=== PATIENT | female | born 1990 | race American Indian/Alaskan Native ===

== ENCOUNTER 2024-11-20 11:02 | Emergency (ER) | payer MEDICAID, SELFPAY ==
[2024-11-20 11:03] VITALS: BMI 31.3
[2024-11-20 11:51] VITALS: BP 124/81; PULSE 85; RESP 18; TEMP 36.6; O2SAT 100
--- NOTE | 2024-11-20 12:14 | XR_ITS ---
EXAMINATION: Ankle, right 3 views . Technique: Ankle AP, oblique, lateral 3 views Date and time of exam: November 20, 2024 1233 hrs. Indications: Twisting injury to the ankle 2 days ago with ankle pain. Findings: Lateral malleolar soft tissue swelling No acute fracture No ankle dislocation Impression: No acute fracture
--- NOTE | 2024-11-20 12:15 | EDNOTE_ITS ---
<Statement entered by Isabella Liu MD - 12/01/24 19:23> As co-signing physician, I was present and available for consult prn. I concur with the plan and care as documented by the midlevel provider. Lower Extremity Injury RME/HPI General Chief Complaint: Ankle/Foot Injury Stated Complaint: INJURY TO RIGHT ANKLE LAST NIGHT Time Seen by Provider: 11/20/24 12:00 Arrival date/time: 11/20/24 11:02 This is a 34-year-old female that comes in with complaints of right ankle pain after falling last night. Patient states that she thinks she twisted it wrong. Patient has some mild edema to lateral ankle on the right side. Patient denies any other injuries. Related Data Previous Rx's ?Medication ?Instructions ?Recorded hydrocodone 5 mg-acetaminophen 325 1 tab PO Q4HR PRN p ain PRN #20 tabs 12/18/20 mg tablet ibuprofen 600 mg tablet 600 mg PO Q6HR PRN Pain Or F ever > 12/18/20 101 #60 tabs acetaminophen 300 mg-codeine 15 mg 1 tab PO Q12H PRN p ain #14 tabs 07/28/24 tablet ibuprofen 800 mg tablet 800 mg PO Q8H PRN pain #30 t abs 07/28/24 ibuprofen 800 mg tablet 800 mg PO Q6H PRN pain #14 t abs 11/20/24 Allergies Allergy/AdvReac Type Severity Reaction Status Date / Time No Known Allergies Allergy Verified 11/20/24 11:04 Review of Systems Review of Systems Systems Reviewed: All systems reviewed, normal except as documented Past Medical History Surgical History SURGICAL: Positive Section ED Exam General General appearance: Present alert and in no apparent distress Head Head exam: Present atraumatic Eye Eye exam: Present normal appearance, PERRL and EOMI ENT ENT exam: Present normal exam, normal oropharynx and mucous membranes moist Neck Neck exam: Present normal inspection, full ROM and trachea midline Chest Chest inspection: Present normal inspection and symmetric chest wall rise Respiratory Respiratory exam: Present normal lung sounds bilaterally Cardiovascular Cardiovascular exam: Present regular rate, normal rhythm and normal heart sounds Abdominal Exam Abdominal exam: Present soft Extremities Exam Extremities exam: Present other (right ankle, some pain with rom but is able to have full rom, mild edema ) Back Exam Back exam: Present normal inspection and full ROM Neurological Exam Neurological exam: Present alert, oriented X3 and CN II-XII intact Psychiatric Psychiatric exam: Present normal affect and normal mood Skin Skin exam: Present warm, dry, intact and normal color Course Quality Measures none Orders Category Date Time Status XR ankle comp RT min 3V Stat Exams 11/20/24 12:14 Completed Acetaminophen Tab [Tylenol ES Tab] Med 11/20/24 12:14 Discontinued 1,000 mg PO X1 ONE Ibuprofen Tab [Motrin Tab] Med 11/20/24 12:14 Discontinued 800 mg PO X1 ONE Vital Signs Vital signs: Vital Signs Temperature 97.9 F 11/20/24 11:51 Pulse Rate 85 11/20/24 11:51 Respiratory Rate 18 11/20/24 11:51 Blood Pressure 124/81 11/20/24 11:51 Pulse Oximetry (%) 100 11/20/24 11:51 Oxygen Delivery Method Room Air 11/20/24 11:51 Extremity Injury, Lower MDM Narrative MDM Narrative:: ankle x ray: Findings: Lateral malleolar soft tissue swelling No acute fracture No ankle dislocation Impression: No acute fracture Today patient had xray of right ankle. there was no acute fracture seen. Exam had some mild edema. I explained to patient at length that if there was continued pain to this area or worsened to come back to ED or see primary provider for more xrays or further testing such as CT scan or MRI. X rays are not perfect and sometimes serial films needed. Patient verbalized understanding. Patient states they will follow up with primary provider in 1-2 days or come back to ED if symptoms change or worsen. Patient data External records reviewed:: [facility] previous records Clinical information provided by:: patient Social determinants that could affect healthcare access:: none Patient has the following chronic illnesses:: none How is presenting disease/condition affected by chronic disease/condition?: no chronic disease Evaluation data The following diagnostics were reviewed and interpreted by me:: radiology exam(s) Lab and/or radiology exams considered but not ordered:: none Interpretation Summary: see note Medications / Prescriptions Medications or Prescriptions considered but not ordered:: none Medication administrations:: Medication Administration History Discontinued Medications Acetaminophen (Acetaminophen 500 Mg Tablet) 1,000 mg PO X1 ONE Stop: 11/20/24 12:15 Last Admin: 11/20/24 12:54 Dose: 1,000 mg Documented By: [facility] Ibuprofen (Ibuprofen Tab 400 Mg Tablet) 800 mg PO X1 ONE Stop: 11/20/24 12:15 Last Admin: 11/20/24 12:54 Dose: 800 mg Documented By: [facility] see [facility] Consultations Consultation(s) initiated? (list below): No Diagnosis Most likely diagnosis given after review of the tests above:: contusion Admission Indicated Admission indicated?: not indicated Admission Request Was there a request for admission?: No Disposition Plan Disposition Plan: Discharge Discharge Attestation Discharge Attestation: The patient and all family members were given an opportunity to ask questions and understood the discharge instructions. Discharge instructions specifically effects, indications for sooner follow up or return to the emergency department, and the expected course of current diagnosis. Patient condition: Stable Discharge Plan Plan Patient Disposition: HOME (Self Care) Patient condition on transfer: Stable Prescriptions/Referrals Prescriptions/Med Rec: New ibuprofen 800 mg tablet 800 mg PO Q6H PRN (Reason: pain) Qty: 14 0RF No Action hydrocodone-acetaminophen 5-325 mg Tablet 1 tab PO Q4HR MDD 6 pills PRN (Reason: pain PRN) Qty: 20 0RF ibuprofen 600 mg Tablet 600 mg PO Q6HR PRN (Reason: Pain Or Fever > 101) Qty: 60 0RF acetaminophen-codeine 300-15 mg tablet 1 tab PO Q12H PRN (Reason: pain) Qty: 14 0RF ibuprofen 800 mg tablet 800 mg PO Q8H PRN (Reason: pain) Qty: 30 0RF Referrals: Ran Griffith MD [Primary Care Provider] - In 1 week Problem List Clinical Impression: Contusion of ankle, right Patient/Caregiver Discharge Instructions Discharge Activity: activity as tolerated Education Materials: Bone Contusion, ED RICE Additional Instructions: Follow up with primary provider in 1-2 days. Come back to ED if symptoms change or worsen Print Language: Turkmen Stand Alone Forms: Daphney Award Info., Work/School Release, Patient Portal Info Letter KIRAN/MELVA Supervising Physician KIRAN/MELVA Supervising Physician: ady
--- NOTE | 2024-11-20 12:46 | PC.NURSE ---
called from lobby for medication and no answer. Pt not found inside the e.d. or outside
--- NOTE | 2024-11-20 12:53 | PC.NURSE ---
CALLED FROM LOBBY AND NO ANSWER. PT NOT FOUND INSIDE THE E.D. OR OUTSIDE.
[2024-11-20] MEDS: ACETAMINOPHEN 500 MG TABLET 1000 MG PO (12:54)
[2024-11-20] MEDS: IBUPROFEN TAB 400 MG TABLET 800 MG PO (12:54)
== END 2024-11-20 14:22 | disposition home or self-care (01) ==
PROVIDERS: Emergency Provider Emergency Medicine; PCP Family Medicine
DX: S90.01XA Contusion of right ankle, initial encounter (principal); W19.XXXA Unspecified fall, initial encounter
CPT/HCPCS: 73610; 99283; A9270